=== PATIENT | female | born 1940 | race Caucasian/White ===

== ENCOUNTER 2022-03-15 09:33 | Day surgery (SDC) | payer OTHER ==
[2022-03-15] MEDS ORDERED: LIDOCAINE MPF 2% 20 MG/1 ML, 5 ML VIAL INH ONE ×3 (11:11→11:33)
[2022-03-15] MEDS ORDERED: LIDOCAINE 2% JELLY UROJECT 10 ML MM ONE (11:30)
[2022-03-15] MEDS ORDERED: BENZOCAINE 20% 0.5mL UD SPRAY MM ONE (11:30)
[2022-03-15] MEDS: fentaNYL CITRATE/PF 100 MCG/2 ML AMP ONE ×2 (11:46→11:51)
[2022-03-15] MEDS: MIDAZOLAM HCL 5 MG/5 ML VIAL ONE ×3 (11:46→11:57)
[2022-03-15 13:12] VITALS: BP_SYST 125
== END 2022-03-15 13:40 | disposition home or self-care (01) ==
LOC: SDS 09:33 → SMU 10:10 → SDS 13:40
PROVIDERS: ATTEND Internal Medicine Critical Care Medicine
DX: J98.11 Atelectasis (principal); R04.2 Hemoptysis; Z20.822 Contact with and (suspected) exposure to COVID-19
CPT/HCPCS: 36415 ×2; 31624; 87070; 87205; 71045; 88108; 88305; 99152; 87426; U0003; G0378; J2250; J3010; 31625

== ENCOUNTER 2023-05-22 07:52 | Outpatient (CLI) | payer OTHER ==
[~2023-05-22 07:52] MED LIST: CIPR500T5 PO; LISI40TA13 PO; METO-542 PO
== END 2023-05-22 20:14 | disposition home or self-care (01) ==
LOC: SUS 07:52
PROVIDERS: ATTEND Internal Medicine Critical Care Medicine
DX: J90 Pleural effusion, not elsewhere classified (principal); R06.02 Shortness of breath
CPT/HCPCS: 71046-TC; 76604